=== PATIENT | male | born 1970 | race Caucasian/White ===

== ENCOUNTER 2017-11-06 09:05 | Emergency (ER) | payer MEDICAID ==
[~2017-11-06] VITALS: Ht 167.6 cm; Wt 72.7 kg
[~2017-11-06 09:05] MED LIST: ACET-75 PO; ONDA8TAB9 PO
[2017-11-06 10:22] LABS: CLARITY,URINE SLIGHTLY CLOUDY (Clear); COLOR,URINE YELLOW (Yellow); GLUCOSE, URINE NEGATIVE (Neg); KETONES,URINE NEGATIVE (Neg); LEUKOCYTE ESTERASE ,URINE NEGATIVE (Neg); NITRITES, URINE NEGATIVE (Neg); OCCULT BLOOD,URINE TRACE-LYSED (Neg); PROTEIN,URINE TRACE mg/dl (Neg); UROBILINOGEN,URINE 0.2 E.U/dL (0.2-1.0)
[2017-11-06 10:25] LABS: UA COLLECTION TYPE CLN CATCH MIDSTREAM
[2017-11-06] MEDS ORDERED: PENI500T2 PO (10:29)
[2017-11-06 10:32] LABS: BACTERIA,URINE NONE SEEN /HPF (Neg); RBC,URINE NONE SEEN /HPF (0-2); SPERM MODERATE /HPF (NEGATIVE); SQUAMOUS EPITHELIAL CELL,UR FEW /LPF (FEW); WBC,URINE 0-4 /HPF (0-4)
[2017-11-06 11:01] VITALS: BP 114/89
== END 2017-11-06 11:02 | disposition home or self-care (01) ==
LOC: ER 09:05
DX: K04.7 Periapical abscess without sinus (principal); F17.200 Nicotine dependence, unspecified, uncomplicated; Z79.899 Other long term (current) drug therapy
CPT/HCPCS: 81001; 99283

== ENCOUNTER 2018-04-20 12:05 | Emergency (ER) | payer MEDICAID ==
[~2018-04-20] VITALS: Ht 167.6 cm; Wt 75.0 kg
[2018-04-20] MEDS ORDERED: HYDR-4353 PO (12:40)
[2018-04-20] MEDS ORDERED: PENI500T2 PO (12:40)
[2018-04-21] MEDS ORDERED: PENI500T2 PO (08:19)
[2018-04-21] MEDS ORDERED: HYDR-4353 PO (08:19)
== END 2018-04-20 12:45 | disposition home or self-care (01) ==
LOC: ER 12:06
DX: K02.9 Dental caries, unspecified (principal); F17.200 Nicotine dependence, unspecified, uncomplicated; Z79.899 Other long term (current) drug therapy
CPT/HCPCS: 99283

== ENCOUNTER 2021-03-30 16:47 | Emergency (ER) | payer MEDICAID ==
[2021-03-31] MEDS ORDERED: CLIN300C63 PO (05:10)
== END 2021-03-30 18:06 | disposition left against medical advice (07) ==
LOC: ER 16:47
DX: J34.89 Other specified disorders of nose and nasal sinuses (principal); Z53.21 Procedure and treatment not carried out due to patient leaving prior to being seen by health care provider

== ENCOUNTER 2021-03-31 02:53 | Emergency (ER) | payer MEDICAID ==
[~2021-03-31] VITALS: Ht 167.6 cm; Wt 60.2 kg
[2021-03-31] MEDS ORDERED: CLIN300C63 PO (05:10)
[2021-03-31] MEDS ORDERED: clindamycin 150mg capsule PO ONE (05:15)
[2021-03-31 05:31] VITALS: BP 123/87
== END 2021-03-31 05:43 | disposition home or self-care (01) ==
LOC: ER 02:53
DX: J34.0 Abscess, furuncle and carbuncle of nose (principal); J34.89 Other specified disorders of nose and nasal sinuses; Z87.440 Personal history of urinary (tract) infections; Z87.442 Personal history of urinary calculi; Z79.2 Long term (current) use of antibiotics
CPT/HCPCS: 99283